=== PATIENT | female | born 1990 | race Caucasian/White ===

== ENCOUNTER 2017-05-24 18:06 | Emergency (ER) | payer SELFPAY ==
[~2017-05-24] VITALS: Ht 160 cm; Wt 68.0 kg
[2017-05-24 18:40] VITALS: BP 113/71
--- NOTE | 2017-05-24 20:13 | NUR ---
Note undone in EDM - 05/24/17 at 2123 by [facility] / c/o rash to right arm, back and left arm x3 days. Patient states "I think they are flea bites. I'm the only one getting them in my house." Pt c/o itchiness, erythema, hot to touch. Denies fever or chills. Denies chest pain or SOB. AOX4, ambulatory with steady gait. VSS.
--- NOTE | 2017-05-24 21:05 | NUR ---
Pt taken to bed 5.
--- NOTE | 2017-05-24 21:13 | NUR ---
26/F c/o rash to right arm, back and left arm x3 days. Patient states "I think they are flea bites. I'm the only one getting them in my house." Pt c/o itchiness, erythema, hot to touch. Denies fever or chills. Denies chest pain or SOB. AOX4, ambulatory with steady gait. VSS.
--- NOTE | 2017-05-24 21:21 | NUR ---
Dr. Herring evaluating patient at bedside.
[2017-05-24 21:35] VITALS: BP 120/72
--- NOTE | 2017-05-24 21:35 | NUR ---
Patient discharged with v/s stable. Written and verbal after care instructions given and explained. Patient alert, oriented and verbalized understanding of instructions. Ambulatory with steady gait. All questions addressed prior to discharge. ID band removed. Patient advised to follow up with PMD. Rx of Bactrim DS 800mg-160mg, Prednisone 20mg, and Keflex 500mg given. Patient educated on indication of medication including possible reaction and side effects. Opportunity to ask questions provided and answered.
== END 2017-05-24 21:35 | disposition home or self-care (01) ==
LOC: MED 18:06
DX: L03.113 Cellulitis of right upper limb (principal)
CPT/HCPCS: 99283

== ENCOUNTER 2018-01-16 20:54 | Emergency (ER) | payer SELFPAY ==
[~2018-01-16] VITALS: Ht 154.9 cm; Wt 75.1 kg
[2018-01-16 21:12] VITALS: BP 114/65
--- NOTE | 2018-01-16 21:15 | NUR ---
TO LOBBY, A/W DMITRI BEARD, JOHANN ERMD NOTED
--- NOTE | 2018-01-16 22:45 | NUR ---
PT TAKEN TO [facility] FROM [facility]
--- NOTE | 2018-01-16 23:20 | NUR ---
27/F CAME IN W C/O 02/19 LT KNEE PAIN, CONSTANT X 2 MONTHS. DENIES TRAUMA/INJURY. NO REDNESS, EDEMA, +PMSC WITH MODERATE PAIN WHILE WALKING. DENIES ANY OTHER PMH/RX/OTC
--- NOTE | 2018-01-16 23:38 | NUR ---
PT TAKEN TO BED 9
--- NOTE | 2018-01-17 00:22 | NUR ---
Dr. Warren evaluating patient at bedside.
[2018-01-17 00:40] VITALS: BP 128/72
--- NOTE | 2018-01-17 00:40 | NUR ---
DPatient discharged with v/s stable. Written and verbal after care instructions given and explained. Patient alert, oriented and verbalized understanding of instructions. Ambulatory with steady gait. All questions addressed prior to discharge. ID band removed. Patient advised to follow up with PMD. Rx of TRAMADOL AND MOTRIN given. Patient educated on indication of medication including possible reaction and side effects. Opportunity to ask questions provided and answered.
== END 2018-01-17 00:40 | disposition home or self-care (01) ==
LOC: MED 20:54
DX: S83.92XA Sprain of unspecified site of left knee, initial encounter (principal); R03.0 Elevated blood-pressure reading, without diagnosis of hypertension; X58.XXXA Exposure to other specified factors, initial encounter; Y93.89 Activity, other specified; Y99.8 Other external cause status; Y92.89 Other specified places as the place of occurrence of the external cause
CPT/HCPCS: 73562; 99284

== ENCOUNTER 2019-08-11 22:29 | Emergency (ER) | payer MEDICAID ==
[~2019-08-11] VITALS: Ht 160 cm; Wt 77.1 kg
[2019-08-11 22:33] VITALS: BP 119/74
--- NOTE | 2019-08-11 22:35 | NUR ---
TO LOBBY A/W BED AMBULATORY
--- NOTE | 2019-08-11 23:16 | NUR ---
PT TAKEN TO BED #2 WITH STEADY GAIT
--- NOTE | 2019-08-11 23:26 | NUR ---
28 Y/O FEMALE PRESENTS TO ED, C/O COUGH SINCE SUNDAY; NONPRODUCTIVE. PT STATES HAVING "HEAVINESS" FEELING WHEN BREATHING. LUNG SOUNDS BILAT CLEAR. C/O MILD DIFFICULTY BREATHING; NO SOB NOTED. PT HAD 1 EPISODE OF NAUSEA AND VOMITING PRIOR COMING TO ED. BS ACTIVE X4 QUADRANTS. DENIES ANY DIARRHEA/CONSTIPATION. PT VSS. MARQUISE AWARE. WILL CONTINUE TO MONITOR.
[2019-08-11] MEDS ORDERED: ALBUTEROL SULFATE/IPRATROPIU 3 ML SOL IH ONE (23:45)
--- NOTE | 2019-08-12 01:12 | NUR ---
Patient discharged with v/s stable. Written and verbal after care instructions given and explained. Patient alert, oriented and verbalized understanding of instructions. Ambulatory with steady gait. All questions addressed prior to discharge. ID band removed. Patient advised to follow up with PMD. Rx of Prednisone and Promethazine DM given. Patient educated on indication of medication including possible reaction and side effects. Opportunity to ask questions provided and answered.
[2019-08-12 01:14] VITALS: BP 130/68
== END 2019-08-12 01:12 | disposition home or self-care (01) ==
LOC: MED 22:29
DX: R05 Cough (principal); R06.2 Wheezing
CPT/HCPCS: 94640; 99283; J7620